=== PATIENT | female | born 1930 | race American Indian/Alaskan Native ===

== ENCOUNTER 2017-10-12 22:47 | Emergency (ER) | payer MEDICARE, OTHER ==
[2017-10-12 22:47] VITALS: BMI 24.1
--- NOTE | 2017-10-12 23:13 | C.PDOC ---
History Of Present Illness Patient brought in to the ER by family for a complaint of abdominal pain that began at approximately 18:00, associated with some nausea. Denies vomiting or diarrhea. Time Seen by Provider: 10/12/17 23:13 Chief Complaint (Nursing): Abdominal Pain History Per: Patient, Family History/Exam Limitations: no limitations Onset/Duration Of Symptoms: Hrs Current Symptoms Are (Timing): Still Present Severity: Mild Pain Scale Rating Of: 4 Location Of Pain/Discomfort: Diffuse Radiation Of Pain To:: None Quality Of Discomfort: Unable To Describe Associated Symptoms: Nausea. denies: Fever, Chills, Vomiting, Diarrhea Exacerbating Factors: None Alleviating Factors: None Recent travel outside of the [place]: No Abnormal Vaginal Bleeding: No Past Medical History Reviewed: Historical Data, Nursing Documentation, Vital Signs Vital Signs: Last Vital Signs Temp 98 F 10/13/17 04:36 Pulse 78 10/13/17 04:36 Resp 16 10/13/17 04:36 BP 175/110 H 10/13/17 04:36 Pulse Ox 98 10/13/17 04:36 - Medical History PMH: Asthma, COPD - [facility] Procedures OTHER ENDOSCOPY OF SM INTEST (05/04/15) REPLACE GASTROSTOMY TUBE (05/04/15) Family History: States: No Known Family Hx - Social History Hx Alcohol Use: No Hx Substance Use: No Review Of Systems Constitutional: Negative for: Fever, Chills Gastrointestinal: Positive for: Nausea, Abdominal Pain. Negative for: Vomiting , Diarrhea Physical Exam - Physical Exam Appears: Non-toxic Skin: Warm, Dry Head: Normacephalic Oral Mucosa: Moist Chest: Symmetrical, No Tenderness Cardiovascular: Rhythm Regular Respiratory: No Rales, No Rhonchi, No Wheezing Gastrointestinal/Abdominal: Soft, No Tenderness, Distention, Other (Tympanic to percussion, peg tube in place) Neurological/Psych: Oriented x3 ED Course And Treatment - Laboratory Results Result Diagrams: 10/12/17 23:51 10/12/17 23:51 O2 Sat by Pulse Oximetry: 98 (Room air) Pulse Ox Interpretation: Normal Progress Note: Blood work and urinalysis ordered. Pepcid and zofran administered. Reevaluation Time: 04:59 Reassessment Condition: Improved Disposition Counseled Patient/Family Regarding: Studies Performed, Diagnosis, Need For Followup, Rx Given - Disposition Referrals: Doug Dow MD [Staff Provider] - Disposition: HOME/ ROUTINE Disposition Time: 23:13 Condition: FAIR Prescriptions: Ondansetron ODT [Zofran ODT] 1 odt PO BID PRN #6 odt PRN Reason: Nausea/Vomiting Polyethylene Glycol 3350 [Miralax] 17 gm PO DAILY #270 ml Instructions: Abdominal Pain (ED), Gas and Bloating (ED) Forms: [email or web address] (formerly [employer]) ([place]ir[place]) - Clinical Impression Clinical Impression: Abdominal pain, Constipation - Scribe Statement The provider has reviewed the documentation as recorded by the Scribcharisma Jordan All medical record entries made by the Mickeyibcharisma were at my direction and personally dictated by me. I have reviewed the chart and agree that the record accurately reflects my personal performance of the history, physical exam, medical decision making, and the department course for this patient. I have also personally directed, reviewed, and agree with the discharge instructions and disposition.
[2017-10-12 23:54] LABS: BASO % 0.3 % (0.0-2.0); EOS # 0.1 K/uL (0.0-0.7); EOS % 0.5 % (0.0-4.0); HEMATOCRIT 38.5 % (34.0-47.0); LYMPH # 0.7 K/uL (1.0-4.3); LYMPH % 5.5 % (20.0-40.0); MEAN CELL VOLUME 93.9 fL (81.0-99.0); MEAN CORPUSCULAR HEMOGLOBIN 31.2 pg (27.0-31.0); MEAN CORPUSCULAR HGB CONC 33.2 g/dL (33.0-37.0); MEAN PLATELET VOLUME 9.1 fL (7.2-11.7); MONO # 0.5 K/uL (0.0-0.8); MONO % 4.2 % (0.0-10.0); PLATELET COUNT 172 K/uL (130-400); RED CELL DISTRIBUTION WIDTH 13.8 % (11.5-14.5); WHITE BLOOD COUNT 12.1 K/uL (4.8-10.8)
[2017-10-13 00:17] LABS: ALKALINE PHOSPHATASE 101 U/L (38-126); ALT/SGPT 23 U/L (9-52); AST/SGOT 35 U/L (14-36); BILIRUBIN,TOTAL 0.8 mg/dL (0.2-1.3); BLOOD UREA NITROGEN 16 mg/dL (7-17); CALCIUM 8.9 mg/dl (8.6-10.4); CARBON DIOXIDE 30 mmol/L (22-30); CHLORIDE 88 mmol/L (98-107); GFR AFRICAN-AMERICAN > 60; GLUCOSE,RANDOM 106 mg/dL (65-105); POTASSIUM 4.6 mmol/L (3.6-5.2); SODIUM 126 mmol/L (132-148); TOTAL PROTEIN 8.5 g/dL (6.3-8.3)
[2017-10-13 00:32] LABS: INR 1.2
[2017-10-13 01:29] LABS: RBC URINE 16 /hpf (0-3); URINE BACTERIA MANY (<OCC); URINE BILIRUBIN NEGATIVE (NEGATIVE); URINE BLOOD NEGATIVE (NEGATIVE); URINE COLOR YELLOW (YELLOW); URINE GLUCOSE (UA) NORMAL (Normal); URINE KETONE TRACE mg/dL (NEGATIVE); URINE LEUKOCYTE ESTERASE 3+ Leu/uL (Negative); URINE PROTEIN 1+ mg/dL (NEGATIVE); WBC CLUMPS MANY /hpf; WBC URINE 3441 /hpf (0-5)
[2017-10-13] MEDS ORDERED: cefTRIAXone IV 1 gm in Dextros 50 ML IVPB ONE (01:30)
[2017-10-13 01:33] LABS: NEUTROPHIL 89 % (50-75); TOTAL CELLS COUNTED 100
[2017-10-13] MEDS ORDERED: Iohexol 350mg/ml 100 ML ONE (01:42)
[2017-10-13 04:37] VITALS: RESP 16; TEMP 98
[2017-10-13 05:46] VITALS: BP 170/100; PULSE 79; O2SAT 99
--- NOTE | 2017-10-13 11:05 | CT ---
PROCEDURE: CT Abdomen and Pelvis with contrast HISTORY: abd pain, peg in place COMPARISON: None available. TECHNIQUE: Contrast dose: 100 mL Omnipaque 350 Radiation dose: Total exam DLP = 233.18 mGy-cm. This CT exam was performed using one or more of the following dose reduction techniques: Automated exposure control, adjustment of the mA and/or kV according to patient size, and/or use of iterative reconstruction technique. FINDINGS: LOWER THORAX: Bibasilar atelectasis. Trace bilateral pleural effusions. No pneumothorax. Partially imaged cardiomegaly. Coronary artery calcifications. Left breast calcification unclear significance. Ovoid 1.1 x 2.2 cm masslike density in the left breast. LIVER: Too small to characterize hepatic hypodensities ; statistically likely cysts. Tiny calcified granuloma. GALLBLADDER AND BILE DUCTS: Unremarkable. PANCREAS: Pancreatic atrophy. SPLEEN: Unremarkable. ADRENALS: Unremarkable. KIDNEYS AND URETERS: The kidneys enhance symmetrically. No hydronephrosis or obstructing calculus identified. VASCULATURE: Fluid is noted surrounding the descending thoracic aorta and upper abdominal aorta, indeterminate ; etiologies such is intramural hematoma are not excluded. Recommend CTA without and with IV contrast for further evaluation if indicated. Atherosclerotic calcifications. No aortic aneurysm. BOWEL: PEG tube within a nondistended stomach. Lack of oral contrast limits evaluation for bowel pathology. Bowel loops appear within normal limits of caliber without evidence of obstruction. Diverticulosis without CT evidence of acute diverticulitis. APPENDIX: The appendix appears within normal limits of caliber. No secondary signs of acute appendicitis. PERITONEUM: No significant free fluid. No definite free air. LYMPH NODES: No bulky adenopathy identified. BLADDER: Trabeculation involving the anterior right urinary bladder. REPRODUCTIVE: Unremarkable. BONES: Osseous demineralization. Degenerative changes. Age-indeterminate L4 compression fracture deformity. OTHER FINDINGS: None. IMPRESSION: X trace bilateral pleural effusions. PEG tube. Fluid surrounding the descending thoracic aorta and upper abdominal aorta, incompletely characterized. Cannot exclude any intramural hematoma. CT of the chest without and with IV contrast recommended for further evaluation if indicated. Left breast calcification unclear significance. Ovoid 1.1 x 2.2 cm masslike density in the left breast. Additional incidental findings as above. Preliminary impression was provided by virtual radiologic. Study marked for PA review.
== END 2017-10-13 05:46 | disposition home or self-care (01) ==
LOC: C.ER 22:47
DX: K59.00 Constipation, unspecified (principal); R10.9 Unspecified abdominal pain; N63.0 Unspecified lump in unspecified breast
CPT/HCPCS: 74177; 80053; 81001; 83690; 85025; 85610; 85730; 96374; 96375; 99285; J0696; J2405; Q9967

== ENCOUNTER 2017-10-15 07:37 | Emergency (ER) | payer MEDICARE, OTHER ==
[2017-10-15 07:38] VITALS: BMI 24.1
[2017-10-15 08:31] LABS: BASO # 0.1 K/uL (0.0-0.2); BASO % 0.4 % (0.0-2.0); EOS % 0.1 % (0.0-4.0); HEMATOCRIT 35.7 % (34.0-47.0); LYMPH # 1.2 K/uL (1.0-4.3); LYMPH % 6.8 % (20.0-40.0); MEAN CORPUSCULAR HEMOGLOBIN 31.6 pg (27.0-31.0); MEAN CORPUSCULAR HGB CONC 33.6 g/dL (33.0-37.0); MEAN PLATELET VOLUME 9.6 fL (7.2-11.7); MONO # 0.7 K/uL (0.0-0.8); MONO % 4.3 % (0.0-10.0); PLATELET COUNT 200 K/uL (130-400); RED CELL DISTRIBUTION WIDTH 14.2 % (11.5-14.5); WHITE BLOOD COUNT 16.9 K/uL (4.8-10.8)
[2017-10-15 08:40] LABS: INR 1.2
--- NOTE | 2017-10-15 08:55 | C.PDOC ---
History Of Present Illness 87 year old female presents to the ED after being told to return for findings in her CT. Patient was seen in the ED 2 days ago fro abdominal pain, CT scan was ordered and she was d/c home with a diagnosis of constipation. CT report was read again by the radiologist for final examination, radiologist saw suspicion of AAA vs aortic dissection hence the patient was called yesterday to return to the ED for further evaluation. 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 Upon chart review patient had a UTI that was not addressed. Patient is AOx3 and states she feel better denies dysuria, hematuria, frequency, fever, chills, vomit, abdominal pain, CP, SOB. Time Seen by Provider: 10/15/17 08:06 Chief Complaint (Nursing): Medical Clearance History Per: Patient History/Exam Limitations: no limitations Onset/Duration Of Symptoms: Days Current Symptoms Are (Timing): Still Present Reports Recently: Seen In ED (2 days ago) Recent travel outside of the [place]: No Additional History Per: Patient Past Medical History Reviewed: Historical Data, Nursing Documentation, Vital Signs Vital Signs: Last Vital Signs Temp 98 F 10/15/17 07:46 Pulse 79 10/15/17 11:43 Resp 17 10/15/17 11:22 BP 148/125 H 10/15/17 11:43 Pulse Ox 95 10/15/17 11:50 - Medical History PMH: Asthma, COPD Denies: Chronic Kidney Disease Surgical History: No Surg Hx - [facility] Procedures OTHER ENDOSCOPY OF SM INTEST (05/04/15) REPLACE GASTROSTOMY TUBE (05/04/15) Family History: States: Unknown Family Hx - Social History Hx Alcohol Use: No Hx Substance Use: No - Immunization History Hx Influenza Vaccination: Yes Hx Pneumococcal Vaccination: No (UNKNOWN) Review Of Systems Constitutional: Negative for: Fever, Chills Cardiovascular: Negative for: Chest Pain Respiratory: Negative for: Cough, Shortness of Breath Gastrointestinal: Negative for: Nausea, Vomiting, Abdominal Pain Genitourinary: Negative for: Dysuria, Hematuria Skin: Negative for: Rash Neurological: Negative for: Weakness, Numbness Physical Exam - Physical Exam Appears: Non-toxic, No Acute Distress Skin: Normal Color, Warm, Dry Head: Atraumatic, Normacephalic Eye(s): bilateral: Normal Inspection Nose: No Discharge Oral Mucosa: Moist Neck: Normal ROM, Supple Chest: Symmetrical, Other (breast exam showed no obvious lumps, no nipple d/c, no skin changes) Cardiovascular: Rhythm Regular, No Murmur Respiratory: Normal Breath Sounds, No Rales, No Rhonchi, No Wheezing Gastrointestinal/Abdominal: Soft, No Tenderness, No Distention, No Rebound, Other (PEG tube in place, no infection presents at the site) Extremity: No Tenderness, No Pedal Edema, No Calf Tenderness, No Deformity, No Swelling Neurological/Psych: Oriented x3, Normal Cognition ED Course And Treatment - Laboratory Results Result Diagrams: 10/15/17 08:25 10/15/17 08:25 O2 Sat by Pulse Oximetry: 95 (On RA) Pulse Ox Interpretation: Normal - CT Scan/US CT dissection Other Rad Studies (CT/US): Read By Radiologist, Radiology Report Reviewed CT/US Interpretation: PROCEDURE: CT Angiography Chest, Abdomen and Pelvis with and without intravenous contrast. HISTORY: abnormal CT, called back, r/o AAA vs dissection. COMPARISON: CT abdomen/pelvis 10/13/2017. TECHNIQUE: Contiguous axial images of the chest, abdomen and pelvis were obtained in the phase of aortic enhancement. A noncontrast enhanced CT of the chest was also obtained to evaluate for possible intramural thrombus. Coronal and sagittal reformats were generated. IV dose administered: 100 mL Visipaque 320. Radiation dose: Total exam DLP = 445.98 mGy-cm. This CT exam was performed using one or more of the following dose reduction techniques: Automated exposure control, adjustment of the mA and/or kV according to patient size, and/ or use of iterative reconstruction technique. FINDINGS: CT ANGIOGRAPHY OF THE CHEST WITH & WITHOUT CONTRAST: AORTA (CHEST AND ABDOMEN): There is intramural hematoma of the thoracic aorta involving the arch and descending thoracic aorta , sparing the ascending thoracic aorta. This intramural hematoma continues to the proximal abdominal aorta, just beneath the level of the SMA takeoff. . The celiac axis, SMA and renal arteries all arise from the true lumen. This is most clearly evident on the CT examination of 10/13/2017. There is 88 90 percent stenosis at the origin of the SMA. There is no significant stenosis seen involving celiac axis or renal artery. The pelvic arteries are unremarkable. LUNGS: Left pleural effusion, small. Compressive atelectasis in left lower lobe. Right lower lobe subsegmental atelectasis. No acute infiltrate. No pulmonary mass. MEDIASTINUM: No lymphadenopathy. Normal heart size. Very small pericardial effusion. No evidence of thoracic aortic aneurysm. Normal diameter of main pulmonary artery. LYMPH NODES: Unremarkable. PLEURA: Small left pleural effusion. No right pleural effusion. No pneumothorax. BONES: Unremarkable. OTHER FINDINGS: There is a somewhat lobulated mass in the medial left breast, measuring 1.1 x 2.5 by 3.2 cm. Further evaluation is advised with mammography and targeted ultrasound. CT ANGIOGRAPHY OF THE ABDOMEN AND PELVIS WITH CONTRAST: LIVER: Unremarkable. No gross lesion or ductal dilatation. GALLBLADDER AND BILE DUCTS: Unremarkable. PANCREAS: Unremarkable. No gross lesion or ductal dilatation. SPLEEN: Unremarkable. ADRENALS: Bilateral adrenal hypertrophy. No mass. KIDNEYS AND URETERS: Unremarkable. No hydronephrosis. No solid mass. VASCULATURE: As above, intramural hematoma involving the proximal abdominal aorta to a level just beneath the origin of the SMA. STOMACH AND BOWEL: Percutaneous gastrostomy tube noted. Visualized portions of the bowel are unremarkable. APPENDIX: Not included. PERITONEUM: Unremarkable. No free fluid. No free air. LYMPH NODES: Unremarkable. No enlarged lymph nodes. Bones. Central compression deformity of the L4 vertebra, age indeterminate. OTHER FINDINGS: None. IMPRESSION: Acute intramural hematoma involving the aortic arch, descending thoracic aorta and proximal abdominal aorta to a level just inferior to the origin of the superior mesenteric artery. There is no involvement of the ascending thoracic aorta. The celiac axis, SMA and renal arteries arise from the true lumen. 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 Incidentally noted mass in the medial left breast. Further evaluation with mammography and targeted ultrasound is advised. Left pleural effusion. Bilateral lower lobe subsegmental atelectasis. Small pericardial effusion. Findings discussed by telephone with Ann NOYOLA, at 11 a.m. on 10/15/2017. Progress Note: Plan: - CT dissection study. - Blood work - white count raised since 2 days ago. - UA repeated. - EKG Medical Decision Making Medical Decision Making: Transfer Patient's case was discussed with Dr. Foley who recommended the patient to be transferred to a higher level of care. Called patient's PMD Dr. Laurence Mora who agreed with the transfer of the patient to a higher level of care. Spoke with vascular fellow Dr. León at [facility] who contacted attending vascular Dr. Cuellar who said that patient should be transferred ER to ER and they will come down to [facility] ER to evaluate the patient and come as a consult. Spoke with [facility] transfer center Dr. Rollins who state they will accept the patient, transfer will be done ER to ER and the attending that will accepting the patient is Dr. Skinner. UA is positive for UTI - Rocephin [address] also shows breast mass that needs to addressed and evaluated. No mammogram was done for the last 20 years. 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 - Scribe Statement The provider has reviewed the documentation as recorded by the Scribe Spencer Mohr All medical record entries made by the Scribcharisma were at my direction and personally dictated by me. I have reviewed the chart and agree that the record accurately reflects my personal performance of the history, physical exam, medical decision making, and the department course for this patient. I have also personally directed, reviewed, and agree with the discharge instructions and disposition.
[2017-10-15 09:00] LABS: ALKALINE PHOSPHATASE 77 U/L (38-126); ALT/SGPT 17 U/L (9-52); AST/SGOT 42 U/L (14-36); BILIRUBIN,TOTAL 1.6 mg/dL (0.2-1.3); BLOOD UREA NITROGEN 35 mg/dL (7-17); CALCIUM 8.5 mg/dl (8.6-10.4); CARBON DIOXIDE 34 mmol/L (22-30); CHLORIDE 90 mmol/L (98-107); GFR AFRICAN-AMERICAN > 60; GLUCOSE,RANDOM 123 mg/dL (65-105); POTASSIUM 5.3 mmol/L (3.6-5.2); SODIUM 131 mmol/L (132-148)
[2017-10-15 09:06] LABS: NEUTROPHIL 84 % (50-75); TOTAL CELLS COUNTED 100
[2017-10-15 09:07] LABS: GIANT PLATELETS PRESENT
[2017-10-15 09:32] LABS: VENOUS BLOOD GAS BASE EXCESS 11.2 mmol/L (0.0-2.0); VENOUS BLOOD GAS PCO2 57 mmHg (40-60); VENOUS BLOOD PH 7.43 (7.32-7.43)
[2017-10-15] MEDS ORDERED: Iodixanol 320 MG/ML 100 ML BOTTLE IV ONE (10:00)
[2017-10-15 10:04] LABS: RBC URINE 6 /hpf (0-3); URINE BILIRUBIN NEGATIVE (NEGATIVE); URINE BLOOD 1+ (NEGATIVE); URINE COLOR Amber (YELLOW); URINE GLUCOSE (UA) NORMAL (Normal); URINE KETONE NEGATIVE (NEGATIVE); URINE LEUKOCYTE ESTERASE 3+ Leu/uL (Negative); URINE PROTEIN 1+ mg/dL (NEGATIVE); WBC CLUMPS MANY /hpf; WBC URINE 312 /hpf (0-5)
--- NOTE | 2017-10-15 11:26 | CT ---
PROCEDURE: CT Angiography Chest, Abdomen and Pelvis with and without intravenous contrast HISTORY: abnormal CT, called back, r/o AAA vs dissection COMPARISON: CT abdomen/pelvis 10/13/2017 TECHNIQUE: Contiguous axial images of the chest, abdomen and pelvis were obtained in the phase of aortic enhancement. A noncontrast enhanced CT of the chest was also obtained to evaluate for possible intramural thrombus. Coronal and sagittal reformats were generated. IV dose administered: 100 mL Visipaque 320 Radiation dose: Total exam DLP = 445.98 mGy-cm. This CT exam was performed using one or more of the following dose reduction techniques: Automated exposure control, adjustment of the mA and/or kV according to patient size, and/or use of iterative reconstruction technique. FINDINGS: CT ANGIOGRAPHY OF THE CHEST WITH & WITHOUT CONTRAST: AORTA (CHEST AND ABDOMEN): There is intramural hematoma of the thoracic aorta involving the arch and descending thoracic aorta, sparing the ascending thoracic aorta. This intramural hematoma continues to the proximal abdominal aorta, just beneath the level of the SMA takeoff. . The celiac axis, SMA and renal arteries all arise from the true lumen. This is most clearly evident on the CT examination of 10/13/2017. There is 88 90 percent stenosis at the origin of the SMA. There is no significant stenosis seen involving celiac axis or renal artery. The pelvic arteries are unremarkable. LUNGS: Left pleural effusion, small. Compressive atelectasis in left lower lobe. Right lower lobe subsegmental atelectasis. No acute infiltrate. No pulmonary mass. MEDIASTINUM: No lymphadenopathy. Normal heart size. Very small pericardial effusion. No evidence of thoracic aortic aneurysm. Normal diameter of main pulmonary artery. LYMPH NODES: Unremarkable. PLEURA: Small left pleural effusion. No right pleural effusion. No pneumothorax. BONES: Unremarkable OTHER FINDINGS: There is a somewhat lobulated mass in the medial left breast, measuring 1.1 x 2.5 by 3.2 cm. Further evaluation is advised with mammography and targeted ultrasound. CT ANGIOGRAPHY OF THE ABDOMEN AND PELVIS WITH CONTRAST: LIVER: Unremarkable. No gross lesion or ductal dilatation. GALLBLADDER AND BILE DUCTS: Unremarkable. PANCREAS: Unremarkable. No gross lesion or ductal dilatation. SPLEEN: Unremarkable. ADRENALS: Bilateral adrenal hypertrophy. No mass. KIDNEYS AND URETERS: Unremarkable. No hydronephrosis. No solid mass. VASCULATURE: As above, intramural hematoma involving the proximal abdominal aorta to a level just beneath the origin of the SMA. STOMACH AND BOWEL: Percutaneous gastrostomy tube noted. Visualized portions of the bowel are unremarkable. APPENDIX: Not included PERITONEUM: Unremarkable. No free fluid. No free air. LYMPH NODES: Unremarkable. No enlarged lymph nodes. Bones Central compression deformity of the L4 vertebra, age indeterminate. OTHER FINDINGS: None. IMPRESSION: Acute intramural hematoma involving the aortic arch, descending thoracic aorta and proximal abdominal aorta to a level just inferior to the origin of the superior mesenteric artery. There is no involvement of the ascending thoracic aorta. The celiac axis, SMA and renal arteries arise from the true lumen. 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 Incidentally noted mass in the medial left breast. Further evaluation with mammography and targeted ultrasound is advised. Left pleural effusion. Bilateral lower lobe subsegmental atelectasis. Small pericardial effusion. Findings discussed by telephone with Ann NOYOLA, at 11 a.m. on 10/15/2017.
[2017-10-15] MEDS ORDERED: Labetalol 25mg/5ml Syringe IV STA (11:52)
[2017-10-15 11:54] VITALS: RESP 17
[2017-10-15 12:23] VITALS: BP 125/66; PULSE 76; TEMP 98.3; O2SAT 100
== END 2017-10-15 12:38 | disposition short-term general hospital (02) ==
LOC: C.ER 07:37
DX: N39.0 Urinary tract infection, site not specified (principal); I71.01 Dissection of thoracic aorta; N63.0 Unspecified lump in unspecified breast; Z74.01 Bed confinement status; J44.9 Chronic obstructive pulmonary disease, unspecified
CPT/HCPCS: 71275; 74175; 80053; 81001; 82803; 85025; 85610; 85730; 87040; 87086; 96374; 99285; J0696; Q9967

== ENCOUNTER 2017-11-09 06:49 | Day surgery (SDC) | payer MEDICARE, OTHER ==
[2017-11-09] MEDS ORDERED: Propofol 10 mg/ml Inj (20 ML) ONE (08:34)
--- NOTE | 2017-11-09 08:38 | CP.SDSHP ---
Same Day Surgery H & P - History Proposed Procedure: PEG replacement Pre-Op Diagnosis: Gastrostomy dysfunction - Previous Medical/Surgical History Cardiac: Other Pulmonary: Asthma, Emphysema/COPD Neuro: TIA/CVA Comments: Aortic dissection Previous Surgical History: None - Allergies Allergies: Allergies No Known Allergies Allergy (Verified 11/09/17 07:11) - Current Medications Current Medications: See reconciliation sheet - Physical Exam General Appearance: WD WN female in NAD Vital Signs: Vital Signs 11/09/17 07:00 Temperature 97.7 F Pulse Rate 80 Respiratory 20 Rate Blood Pressure 131/80 O2 Sat by Pulse 100 Oximetry Mental Status: Alert & Oriented x3 Neuro: WNL Heart: WNL Lungs: WNL GI: WNL - {Optional Preform as Required} Abdomen: Other Other Pertinent Findings: G tube in epigastrium - Impression Impression: PEG tube dysfunction Pt. Evaluated Today:Candidate for Anesthesia & Procedure: Yes - Date & Time Date: 11/09/17 Time: 08:58 Short Stay Discharge - Short Stay Discharge Admitting Diagnosis/Reason for Visit: PEG MALFUNCTION Disposition: HOME/ ROUTINE
[2017-11-09] MEDS ORDERED: Lactated Ringer's 1,000 ML IV ONE (08:41)
[2017-11-09 14:40] VITALS: TEMP 97.9
[2017-11-09 14:51] VITALS: BP 168/78; PULSE 75; RESP 18; O2SAT 99
== END 2017-11-09 11:15 | disposition home or self-care (01) ==
LOC: C.ENDO 06:49
PROVIDERS: ATTEND Internal Medicine Gastroenterology
DX: K94.23 Gastrostomy malfunction (principal); J44.9 Chronic obstructive pulmonary disease, unspecified; K44.9 Diaphragmatic hernia without obstruction or gangrene; Z86.73 Personal history of transient ischemic attack (TIA), and cerebral infarction without residual deficits
CPT/HCPCS: 43246; 88300; J2704; J7120

== ENCOUNTER 2019-03-08 10:00 | Outpatient (CLI) | payer OTHER | END 2019-03-08 10:01 | disposition home or self-care (01) | LOC: C.CTH 10:00 | DX: K94.23 Gastrostomy malfunction (principal) ==